=== PATIENT | female | born 2000 | race Caucasian/White ===

== ENCOUNTER 2025-06-19 04:14 | Inpatient (IN) | payer OTHER ==
[~2025-06-19] VITALS: Ht 160 cm; Wt 89.4 kg
[2025-06-19 04:03] VITALS: BP 129/83; O2SAT 99
[2025-06-19] MEDS ORDERED: MORPHINE SULFATE 4 MG/ML CARTRIDGE IV PRN (04:30)
[2025-06-19] MEDS ORDERED: FAMOTIDINE/PF 20 MG/2 ML VIAL IV PUSH PRN (04:30)
[2025-06-19] MEDS ORDERED: RINGERS SOLUTION,LACTATED 1,000 ML IV SCH (04:30)
[2025-06-19] MEDS ORDERED: PRENATAL TABLE1 EAC1 PO (04:38)
[2025-06-19] MEDS ORDERED: SYNTHROID75 MCG PO (04:38)
[2025-06-19 06:11] LABS: BASO % 0.2 % (0.1-1.2); EOS # 0.11 (0.04-0.54); EOS % 0.8 % (0.7-7.0); LYMPH # 2.46 (1.18-3.74); LYMPH % 18.1 % (19.3-53.1); MEAN PLATELET VOLUME 11.90 fl (9.4-12.4); MONO # 0.96 (0.24-0.82); MONO % 7.1 % (4.7-12.5); NEUT # 9.95 (1.56-6.13); NEUT % 73.4 % (34.0-71.1); RED CELL DISTRIBUTION WIDTH 13.2 % (11.6-14.4)
[2025-06-19 06:35] LABS: INR < 0.93
[2025-06-19 06:37] LABS: ALT/SGPT 18.0 U/L (12-78); AST/SGOT 24.0 U/L (15-37); BILIRUBIN TOTAL 0.38 mg/dL (0.3-1.2); BUN CREA RATIO 21.0 (7.0-25.0); CREATININE SERUM 0.7 mg/dL (0.55-1.02); GFR 102.8; GLOBULINA 3.9 G/DL (2.4-3.5); GLUCOSE FASTING 79.0 mg/dL (65-100); OSMOLALITY SERUM 277.0 MOSM/KG (275-295)
[2025-06-19 06:54] VITALS: BP 120/69
[2025-06-19 07:48] VITALS: BP 131/75
[2025-06-19] MEDS ORDERED: OXYTOCIN 500 ML IV ONE (12:00)
[2025-06-19] MEDS ORDERED: OXYTOCIN 1,000 ML IV SCH (13:45)
[2025-06-19] MEDS ORDERED: CHLORHEXIDINE GLUCONATE 120 ML BOTTLE TOP SCH (13:45)
[2025-06-19 14:30] VITALS: BP 114/72
[2025-06-19 16:00] VITALS: BP 112/75
[2025-06-20] VITALS: BP 97/63
[2025-06-20 08:00] VITALS: BP 114/71
[2025-06-20 08:04] LABS: BASO % 0.2 % (0.1-1.2); EOS # 0.03 (0.04-0.54); EOS % 0.2 % (0.7-7.0); LYMPH # 2.61 (1.18-3.74); LYMPH % 13.9 % (19.3-53.1); MEAN PLATELET VOLUME 11.90 fl (9.4-12.4); MONO # 1.55 (0.24-0.82); MONO % 8.3 % (4.7-12.5); NEUT # 14.37 (1.56-6.13); NEUT % 76.5 % (34.0-71.1); RED CELL DISTRIBUTION WIDTH 13.3 % (11.6-14.4)
[2025-06-20 16:36] VITALS: BP 110/75
[2025-06-21 00:40] VITALS: BP 109/74
[2025-06-21 08:00] VITALS: BP 119/82
== END 2025-06-21 16:21 | disposition home or self-care (01) | DRG 807 ==
LOC: LDR 04:14 → OB/GYN 04:14 → LDR 07-01 16:02
PROVIDERS: Obstetrics & Gynecology; ADMIT Obstetrics & Gynecology; ATTEND Obstetrics & Gynecology
PROC: 10E0XZZ Delivery of Products of Conception, External Approach (ICD-10-PCS; principal; 2025-06-19)
PROC: 0KQM0ZZ Repair Perineum Muscle, Open Approach (ICD-10-PCS; 2025-06-19)
PROC: 4A1HXCZ Monitoring of Products of Conception, Cardiac Rate, External Approach (ICD-10-PCS; 2025-06-19)
DX: O70.1 Second degree perineal laceration during delivery (principal); Z37.0 Single live birth; Z3A.38 38 weeks gestation of pregnancy